=== PATIENT | male | born 1990 | race American Indian/Alaskan Native ===

== ENCOUNTER 2017-01-01 13:12 | Emergency (ER) | payer MEDICAID, OTHER ==
[2017-01-01 13:40] VITALS: TEMP 98
[2017-01-01 14:20] VITALS: RESP 16
--- NOTE | 2017-01-01 14:24 | ED PDOC ---
Arrival/HPI - General Chief Complaint: Back Pain Time Seen by Provider: 01/01/17 14:11 Historian: Patient - History of Present Illness Narrative History of Present Illness (Text): 01/01/17 14:02 A 26 year old male presents to the emergency department complaining of intermittent episodes of left hand numbness and decrease strength. Patient reports symptoms only lasted for a second but took place on 2 separate occasions so he wanted to come to the emergency department to get evaluated. He reports last week he pulled his back but did not come to the emergency department for evaluation of back pain. He denies and injuries, headaches or any other complaints at this time. Time/Duration: Other Symptom Onset: Other Symptom Course: Intermittent Quality: Other Activities at Onset: Rest Context: Home Past Medical History - Provider Review Nursing Documentation Reviewed: Yes - Infectious Disease Hx of Infectious Diseases: None - Cardiac Hx Hypertension: Yes - Psychiatric Hx Substance Use: No Family/Social History - Physician Review Nursing Documentation Reviewed: Yes Family/Social History: No Known Family HX Smoking Status: Never Smoked Hx Alcohol Use: Yes Frequency of alcohol use: Socially Hx Substance Use: No Allergies/Home Meds Allergies/Adverse Reactions: Allergies No Known Allergies Allergy (Verified 01/01/17 13:40) Home Medications: Home Meds Medication Instructions Recorded Confirmed No Known Home Med 01/01/17 01/01/17 Physical Exam - Physical Exam Narrative Physical Exam (Text): - Review of Systems Constitutional: Normal. absent: Fatigue, Weight Change, Fevers Eyes: Normal ENT: Normal Respiratory: Normal absent: SOB, Cough, Sputum Cardiovascular: Normal absent: Chest pain, Palpitations, Syncope Gastrointestinal: Normal absent: Abdominal pain, Diarrhea, Nausea, Vomiting Genitourinary: Normal. absent: Dysuria, Frequency, Hematuria Musculoskeletal: Normal. absent: Arthralgias, Back Pain, Neck Pain Skin: Normal Neurological: Brief moment of numbness and weakness to the left arm. Endocrine: Normal Hemo/Lymphatic: Normal Psychiatric: Normal - Physical exam Patient appears age appropriate, speaking full sentences without difficulty - Systems Exam Head: Present: Atraumatic, Normocephalic Pupils: Present: PERRL Extraocular Muscles: Present: EOMI Conjunctiva: Present: Normal Mouth: Present: Moist Mucous Membranes Neck: Present: Normal Range of Motion. No: MIDLINE TENDERNESS, Paraspinal Tenderness Respiratory/Chest: Present: Clear to Auscultation, Good Air Exchange. No: Respiratory Distress, Accessory Muscle Use, Tachypneic Cardiovascular: Present: Regular Rate and Rhythm, Normal S1, S2, Peripheral Pulses Present. No: Murmurs Abdomen: Present: Normal Bowel Sounds, No: Tenderness, Peritoneal Signs, Rebound, Guarding, Distention Back: Present: Normal Inspection. No: Midline Tenderness, Paraspinal Tenderness Upper Extremity: Present: Normal Inspection. No: Cyanosis, Edema Lower Extremity: Present: Normal Inspection. No: Edema Neurological: Present: GCS=15, Speech Normal, cranial nerves II through XII fully intact with no cerebellar abnormality, neuro-sensory fully intact. No focal neurological deficits. Skin: Present: Warm, Dry, Normal Color. No: Rashes Lymphatic: Present: OX3, NI, NC Psychiatric: Present: Alert, Oriented x 3, Normal Insight, Normal Concentration Vital Signs Reviewed: Yes Vital Signs Temp Pulse Resp BP Pulse Ox 01/01/17 14:18 76 16 134/82 99 01/01/17 13:33 98 F 79 18 140/74 99 Temperature: Afebrile Blood Pressure: Normal Pulse: Regular Respiratory Rate: Normal Appearance: Positive for: Well-Appearing, Non-Toxic, Comfortable Pain Distress: None Mental Status: Positive for: Alert and Oriented X 3 Medical Decision Making ED Course and Treatment: 01/01/17 14:02 Impression: A 26 year old male with intermittent numbness and weakness to the left upper extremity. Physical examination reveal no acute findings. Differential Diagnosis include but are not limited to: intracranial abnormalities Plan: -- Head CT -- Toradol -- Reassess and disposition Progress Notes: 01/01/17 15:[address]: Creator and Dictator: STEVE HUERTAS MD IMPRESSION: No acute intracranial abnormality. Chronic right frontal, maxillary and ethmoid sinusitis. Fluid level in the left maxillary sinus may represent acute sinusitis in the appropriate clinical setting. 01/01/17 15:47 Patient is currently in no distress and has no acute findings on CAT scan. Patient has no focal neurological deficits at this time and has no complaints. Patient states that he currently has no back pain. I discussed in great detail with patient and importance of follow-up with a neurologist for further workup of his intermittent hand numbness. Patient voiced understanding and states that he will follow-up early this week. Pt states he understands to return to the ER right away for new or worsening symptoms or for inability to f/u with PMD or specialist as instructed. Patient states that he fully agrees with and understands discharge instructions. States that he agrees with the plan and disposition. Verbalized and repeated discharge instructions and plan. I have given the patient opportunity to ask any additional questions. - RAD Interpretation Radiology Orders: 01/01/17 14:11 HEAD W/O CONTRAST [CT] Stat - Medication Orders Current Medication Orders: Discontinued Medications Ketorolac Tromethamine (Toradol) 30 mg IM STAT STA Stop: 01/01/17 14:12 Last Admin: 01/01/17 14:21 Dose: 30 MG IM Administration Charges Document 01/01/17 14:21 HI (Rec: 01/01/17 14:21 HI [facility] [id number]) Injection Site MAR Injection Site Right Deltoid Charges for Administration # of IM Administrations 1 - Scribe Statement The provider has reviewed the documentation as recorded by the Scribe Tristan Yoon Provider Scribe Attestation: All medical record entries made by the Scribe were at my direction and personally dictated by me. I have reviewed the chart and agree that the record accurately reflects my personal performance of the history, physical exam, medical decision making, and the department course for this patient. I have also personally directed, reviewed, and agree with the discharge instructions and disposition. Disposition/Present on Arrival - Present on Arrival Any Indicators Present on Arrival: No History of DVT/PE: No History of Uncontrolled Diabetes: No Urinary Catheter: No History of Decub. Ulcer: No History Surgical Site Infection Following: None - Disposition Have Diagnosis and Disposition been Completed?: Yes Diagnosis: Paresthesia Disposition: HOME/ ROUTINE Disposition Time: 15:49 Patient Plan: Discharge Condition: GOOD Discharge Instructions (ExitCare): Paresthesia (ED) Additional Instructions: PLEASE RETURN TO THE EMERGENCY DEPARTMENT FOR NEW OR WORSENING SYMPTOMS. RETURN RIGHT AWAY IF YOU CANNOT FOLLOW UP WITH YOUR PRIMARY CARE DOCTOR, CLINIC, OR SPECIALIST IN 1-2 DAYS. Referrals: Mandeep Mcdaniel MD [Staff Provider] - Follow up with primary Juan Ramon Mcdaniel MD [Staff Provider] - Follow up with primary
--- NOTE | 2017-01-01 15:06 | CT ---
PROCEDURE: CT HEAD WITHOUT CONTRAST. HISTORY: MATHIS x2 weeks COMPARISON: None available. TECHNIQUE: Axial computed tomography images were obtained through the head/brain without intravenous contrast. Radiation dose: Total exam DLP = 774.23 mGy-cm. FINDINGS: HEMORRHAGE: No intracranial hemorrhage. BRAIN: Rice-white matter differentiation is preserved. There is no mass, mass effect or abnormal extra-axial fluid collection. There is normal density in the larger dural venous sinuses. VENTRICLES: The ventricles are normal in size, shape and configuration. CALVARIUM: The skull base and calvarium are normal. PARANASAL SINUSES: There is a retention cyst/ polyp in the right frontal sinus and mild polypoid mucosal thickening in the maxillary sinuses. There is moderate anterior ethmoid chronic sinusitis. There is a fluid level in the left maxillary sinus. MASTOID AIR CELLS: Predominantly clear. OTHER FINDINGS: None. IMPRESSION: No acute intracranial abnormality. Chronic right frontal, maxillary and ethmoid sinusitis. Fluid level in the left maxillary sinus may represent acute sinusitis in the appropriate clinical setting.
[2017-01-01 16:34] VITALS: BP 134/71; PULSE 66; O2SAT 100
--- NOTE | 2017-01-02 15:45 | CARD ---
APPROVED REPORT EKG Measurement Heart [id number] <Conclusion> Normal sinus rhythm with sinus arrhythmia Normal ECG
== END 2017-01-01 16:00 | disposition home or self-care (01) ==
LOC: ED 13:12
DX: R20.9 Unspecified disturbances of skin sensation (principal); I10 Essential (primary) hypertension
CPT/HCPCS: 70450; 93005; 96372; 99283; J1885

== ENCOUNTER 2017-02-08 16:01 | Emergency (ER) | payer MEDICAID ==
[2017-02-08 16:20] VITALS: RESP 16; TEMP 98.9
--- NOTE | 2017-02-08 16:43 | ED PDOC ---
Arrival/HPI - General Chief Complaint: Lower Extremity Problem/Injury Time Seen by Provider: 02/08/17 16:38 Historian: Patient - History of Present Illness Narrative History of Present Illness (Text): 02/08/17 16:40 27 y/o male, no pmh, nkda, c/o rt. foot pain x 2 days with no fall or trauma. Aching pain, aggravated by movement, no numbness or tingling, no headache or night sweat, no calf pain, no palpitation, no rash, no other medical or psychological complaints. Past Medical History - Provider Review Nursing Documentation Reviewed: Yes - Infectious Disease Hx of Infectious Diseases: None - Cardiac Hx Cardiac Disorders: No Hx Hypertension: No - Pulmonary Hx Respiratory Disorders: No - Neurological Hx Neurological Disorder: No - HEENT Hx HEENT Disorder: No - Renal Hx Renal Disorder: No - Endocrine/Metabolic Hx Endocrine Disorders: No - Hematological/Oncological Hx Blood Disorders: No - Integumentary Hx Dermatological Disorder: No - Musculoskeletal/Rheumatological Hx Musculoskeletal Disorders: No - Gastrointestinal Hx Gastrointestinal Disorders: No - Genitourinary/Gynecological Hx Genitourinary Disorders: No - Psychiatric Hx Psychophysiologic Disorder: No Hx Substance Use: No Family/Social History - Physician Review Nursing Documentation Reviewed: Yes Family/Social History: Unknown Family HX Smoking Status: Never Smoked Hx Alcohol Use: Yes Hx Substance Use: No Allergies/Home Meds Allergies/Adverse Reactions: Allergies No Known Allergies Allergy (Verified 02/08/17 16:15) Review of Systems - Review of Systems Constitutional: absent: Fatigue, Fevers Eyes: absent: Vision Changes ENT: absent: Hearing Changes Respiratory: absent: Cough, Sputum Cardiovascular: absent: Chest Pain Gastrointestinal: absent: Abdominal Pain, Nausea, Vomiting Musculoskeletal: Arthralgias, Myalgias. absent: Back Pain, Neck Pain, Joint Swelling Skin: absent: Rash, Pruritis Neurological: absent: Headache, Dizziness, Focal Weakness, Gait Changes Physical Exam Vital Signs Reviewed: Yes Vital Signs Temp Pulse Resp BP Pulse Ox 02/08/17 17:40 90 16 140/82 98 02/08/17 16:15 98.9 F 88 16 135/86 97 Temperature: Afebrile Blood Pressure: Normal Pulse: Regular Respiratory Rate: Normal Appearance: Positive for: Well-Appearing, Non-Toxic, Comfortable Pain Distress: Moderate Mental Status: Positive for: Alert and Oriented X 3 - Systems Exam Head: Present: Atraumatic, Normocephalic Pupils: Present: PERRL Extroacular Muscles: Present: EOMI Conjunctiva: Present: Normal Mouth: Present: Moist Mucous Membranes Pharnyx: No: ERYTHEMA, EXUDATE, TONSILS ENLARGED, Peritonsilar Swelling, Uvular Deviation, Soft Palate/Uvular Edema Nose (External): Present: Atraumatic. No: Abrasion, Contusion, Laceration Nose (Internal): Present: Normal Inspection, No Active Bleeding. No: Rhinorrhea , Septal Hematoma, Epistaxis Neck: Present: Normal Range of Motion Respiratory/Chest: Present: Clear to Auscultation, Good Air Exchange. No: Respiratory Distress, Accessory Muscle Use, Wheezes, Retracting, Rhonchi Cardiovascular: Present: Regular Rate and Rhythm, Normal S1, S2. No: Murmurs Abdomen: Present: Normal Bowel Sounds. No: Tenderness, Distention, Peritoneal Signs Back: Present: Normal Inspection Upper Extremity: Present: Normal Inspection. No: Cyanosis, Edema Lower Extremity: Present: Normal Inspection, Other (Rt. foot: +ttp on the dorsum aspect of the foot of the extensor tendon region, no podegra, FROM without limitation, sensation intact, motor 5/5, +DPPT pulses, capillary refill < 2 seconds, neurovascular intact. ). No: Edema Neurological: Present: GCS=15, CN II-XII Intact, Speech Normal Skin: Present: Warm, Dry, Normal Color. No: Rashes Psychiatric: Present: Alert, Oriented x 3, Normal Insight, Normal Concentration Medical Decision Making ED Course and Treatment: 02/08/17 16:43 -indomethacin -xray -observe and reassess 02/08/17 17:19 -xray show no fracture or dislocation. -Erwin wrap applied with neurovascular intact, crutches given. -Discharge home with indomethacin, erwin wrap, crutches, avoid wearing close toe shoes, non-weight bearing for 5-7 days, avoid strenuous exercise or activity, follow up with your own pmd and unloader within 2 days, return to the ER for any new or worsening signs or symptoms. - RAD Interpretation Radiology Orders: 02/08/17 16:38 FOOT RIGHT 3 VIEWS ROUTINE [RAD] Stat normal right foot radiographs Casting Carrier: Radiologist - Medication Orders Current Medication Orders: Discontinued Medications Indomethacin (Indocin) 50 mg PO STAT STA Stop: 02/08/17 16:39 Last Admin: 02/08/17 17:09 Dose: 50 mg - PA / CONE WORKER / Resident Statement / has reviewed & agrees with the documentation as recorded. Disposition/Present on Arrival - Present on Arrival Any Indicators Present on Arrival: No History of DVT/PE: No History of Uncontrolled Diabetes: No Urinary Catheter: No History of Decub. Ulcer: No History Surgical Site Infection Following: None - Disposition Have Diagnosis and Disposition been Completed?: Yes Diagnosis: Tendonitis Disposition: HOME/ ROUTINE Disposition Time: 17:21 Patient Plan: Discharge Condition: GOOD Additional Instructions: Discharge home with indomethacin, erwin wrap, crutches, avoid wearing close toe shoes, non-weight bearing for 5-7 days, avoid strenuous exercise or activity, follow up with your own pmd and unloader within 2 days, return to the ER for any new or worsening signs or symptoms. Prescriptions: Indomethacin [Indocin] 50 mg PO TID PRN #30 cap PRN Reason: Other Referrals: Hamida Freed MD [Primary Care Provider] - Follow up with primary Tommy Roberto DPM [Staff Provider] - Follow up with primary Forms: WORK NOTE
[2017-02-08 17:40] VITALS: BP 140/82; PULSE 90; O2SAT 98
--- NOTE | 2017-02-09 08:29 | RAD ---
PROCEDURE: Right Foot Radiographs. HISTORY: rt. dorsum foot pain x 2 days COMPARISON: None. FINDINGS: BONES: Normal. No fracture. JOINTS: Normal. SOFT TISSUES: Normal. OTHER FINDINGS: None. IMPRESSION: Normal right foot radiographs.
== END 2017-02-08 17:40 | disposition home or self-care (01) ==
LOC: ED 16:01
DX: M77.51 Other enthesopathy of right foot and ankle (principal)

== ENCOUNTER 2017-03-19 12:12 | Emergency (ER) | payer MEDICAID ==
[2017-03-19 12:41] VITALS: BP 125/81; PULSE 84; RESP 16; TEMP 98.7; O2SAT 97
--- NOTE | 2017-03-19 12:45 | ED PDOC ---
Arrival/HPI - General Chief Complaint: Abnormal Skin Integrity Time Seen by Provider: 03/19/17 12:41 Historian: Patient - History of Present Illness Narrative History of Present Illness (Text): 03/19/17 12:41 27 y/o male, no pmh, nkda, last tetanus doesn't remember, c/o lt. hand 5th digit finger laceration x 2 hours. Pt. was preparing the food, accidentally cut on the lt. hand 5th digit region, no numbness or tingling, able to bend and extend the injured finger without difficutly, no loss of sensation, no other medical or psychological complaints. Past Medical History - Provider Review Nursing Documentation Reviewed: Yes - Infectious Disease Hx of Infectious Diseases: None - Cardiac Hx Cardiac Disorders: No Hx Hypertension: No - Pulmonary Hx Respiratory Disorders: No - Neurological Hx Neurological Disorder: No - HEENT Hx HEENT Disorder: No - Renal Hx Renal Disorder: No - Endocrine/Metabolic Hx Endocrine Disorders: No - Hematological/Oncological Hx Blood Disorders: No - Integumentary Hx Dermatological Disorder: No - Musculoskeletal/Rheumatological Hx Musculoskeletal Disorders: No - Gastrointestinal Hx Gastrointestinal Disorders: No - Genitourinary/Gynecological Hx Genitourinary Disorders: No - Psychiatric Hx Psychophysiologic Disorder: No Hx Substance Use: No Family/Social History - Physician Review Nursing Documentation Reviewed: Yes Family/Social History: Unknown Family HX Smoking Status: Never Smoked Hx Alcohol Use: Yes Hx Substance Use: No Allergies/Home Meds Allergies/Adverse Reactions: Allergies No Known Allergies Allergy (Verified 03/19/17 12:38) Review of Systems - Review of Systems Constitutional: absent: Fatigue, Fevers Eyes: absent: Vision Changes ENT: absent: Hearing Changes Respiratory: absent: SOB, Cough Cardiovascular: absent: Chest Pain Gastrointestinal: absent: Abdominal Pain, Nausea, Vomiting Skin: Laceration. absent: Rash, Pruritis, Skin Lesions, Abscess, Ulcer, Cellulitis Neurological: absent: Headache, Dizziness, Focal Weakness, Gait Changes Psychiatric: absent: Anxiety, Depression, Suicidal Ideation Physical Exam Vital Signs Reviewed: Yes Vital Signs Temp Pulse Resp BP Pulse Ox 03/19/17 12:38 98.7 F 84 16 125/81 97 Temperature: Afebrile Blood Pressure: Normal Pulse: Regular Respiratory Rate: Normal Appearance: Positive for: Well-Appearing, Non-Toxic, Comfortable Pain Distress: Mild Mental Status: Positive for: Alert and Oriented X 3 - Systems Exam Head: Present: Atraumatic, Normocephalic Pupils: Present: PERRL Extroacular Muscles: Present: EOMI Conjunctiva: Present: Normal Mouth: Present: Moist Mucous Membranes Neck: Present: Normal Range of Motion Respiratory/Chest: Present: Clear to Auscultation, Good Air Exchange. No: Respiratory Distress, Accessory Muscle Use Cardiovascular: Present: Regular Rate and Rhythm, Normal S1, S2. No: Murmurs Abdomen: Present: Normal Bowel Sounds. No: Tenderness, Distention, Peritoneal Signs Back: Present: Normal Inspection Upper Extremity: Present: Normal Inspection, Other (Lt. hand 5th digit: ventral distal phalanx region visible approx. 1cm superficial laceration with mild oozing, FROM without limitation, sensation intact, motor 5/5, +radial uplse, capillary refill< 2 seconds, neurovascular intact. ). No: Cyanosis, Edema Lower Extremity: Present: Normal Inspection. No: Edema Neurological: Present: GCS=15, CN II-XII Intact, Speech Normal Skin: Present: Warm, Dry, Normal Color. No: Rashes Psychiatric: Present: Alert, Oriented x 3, Normal Insight, Normal Concentration Medical Decision Making ED Course and Treatment: 03/19/17 12:43 -tetanus -sensation intact, motor 5/5, wound irrigate with 1000cc of normal saline, clean with betadine, 1% lidocaine with 3cc for digital block, 5-0 made 3 stiches with good approximation, hemostasis obtained, bacitracin and gauze dressing, sensation intact, motor 5/5, -Discharge home with keflex, motrin, bacitracin oinment, keep the dressing dry and clean for 24 hours then clean with soap and water twice daily, follow up with your own pmd and hand specialist within 2 days, return to the ER for any new or worsening signs or symptoms. - Medication Orders Current Medication Orders: Discontinued Medications Tetanus/Reduced Diphtheria/Acell Pertussis (Boostrix Vaccine Inj) 0.5 ml IM .ONCE ONE Stop: 03/19/17 13:17 - PA / COLOR STRIPPER / Resident Statement / has reviewed & agrees with the documentation as recorded. Disposition/Present on Arrival - Present on Arrival Any Indicators Present on Arrival: No History of DVT/PE: No History of Uncontrolled Diabetes: No Urinary Catheter: No History of Decub. Ulcer: No History Surgical Site Infection Following: None - Disposition Have Diagnosis and Disposition been Completed?: Yes Diagnosis: Finger laceration Disposition: HOME/ ROUTINE Disposition Time: 12:45 Patient Plan: Discharge Patient Problems: Current Active Problems Problem Status Onset Finger laceration Acute Condition: GOOD Additional Instructions: Discharge home with keflex, motrin, bacitracin oinment, keep the dressing dry and clean for 24 hours then clean with soap and water twice daily, follow up with your own pmd and hand specialist within 2 days, return to the ER for any new or worsening signs or symptoms. Prescriptions: Bacitracin Ointment [Bacitracin] 1 appful TOP BID #15 g Cephalexin [Keflex] 500 mg PO TID #24 capsule Ibuprofen [Motrin Tab] 600 mg PO TID PRN #21 tab PRN Reason: Other Referrals: Eric Wong MD [Staff Provider] - Follow up with primary Adam Drake MD [Staff Provider] - Follow up with primary [facility] [Outside] - Follow up with primary Forms: WORK NOTE
[2017-03-19] MEDS ORDERED: TDAP Vaccine 0.5 mL Syr IM ONE (13:16)
== END 2017-03-19 13:39 | disposition home or self-care (01) ==
LOC: ED 12:12
DX: S61.217A Laceration without foreign body of left little finger without damage to nail, initial encounter (principal); W45.8XXA Other foreign body or object entering through skin, initial encounter; Y93.G1 Activity, food preparation and clean up; Z23 Encounter for immunization

== ENCOUNTER 2017-09-28 14:14 | Emergency (ER) | payer MEDICAID ==
[2017-09-28 14:25] VITALS: TEMP 98.3; O2SAT 100
--- NOTE | 2017-09-28 14:31 | ED PDOC ---
Arrival/HPI - General Chief Complaint: Back Pain Time Seen by Provider: 09/28/17 14:27 Historian: Patient - History of Present Illness Narrative History of Present Illness (Text): 09/28/17 14:15 Urban Jain is a 27 year old male, whose past medical history includes tendonitis and hypertension, who presents to the emergency department complaining of intermittent chest pressure with some difficulty breathing since waking up this morning. Patient also notes that he experiences lower back pain. Patient denies any fever, chills, shortness of breath, nausea, vomiting, diarrhea, urinary symptoms, neck pain, headache, dizziness, or any other complaints. Time/Duration: 4-6 hours Symptom Onset: Gradual Symptom Course: Unchanged Activities at Onset: Light Context: Home Past Medical History - Provider Review Nursing Documentation Reviewed: Yes - Infectious Disease Hx of Infectious Diseases: None - Cardiac Hx Cardiac Disorders: No Hx Hypertension: Yes - Pulmonary Hx Respiratory Disorders: No - Neurological Hx Neurological Disorder: No - HEENT Hx HEENT Disorder: No - Renal Hx Renal Disorder: No - Endocrine/Metabolic Hx Endocrine Disorders: No - Hematological/Oncological Hx Blood Disorders: No - Integumentary Hx Dermatological Disorder: No - Musculoskeletal/Rheumatological Hx Musculoskeletal Disorders: No - Gastrointestinal Hx Gastrointestinal Disorders: No - Genitourinary/Gynecological Hx Genitourinary Disorders: No - Psychiatric Hx Psychophysiologic Disorder: No Hx Substance Use: No Family/Social History - Physician Review Nursing Documentation Reviewed: Yes Family/Social History: No Known Family HX Smoking Status: Never Smoked Hx Alcohol Use: Yes Frequency of alcohol use: Socially Hx Substance Use: No Allergies/Home Meds Allergies/Adverse Reactions: Allergies No Known Allergies Allergy (Verified 09/28/17 14:21) Review of Systems - Physician Review All systems were reviewed & negative as marked: Yes - Review of Systems Constitutional: absent: Fevers, Night Sweats Eyes: absent: Vision Changes ENT: absent: Hearing Changes Respiratory: absent: Cough Cardiovascular: Chest Pain (Chest pressure with some difficulty breathing) Gastrointestinal: absent: Abdominal Pain Genitourinary Male: absent: Dysuria, Frequency Musculoskeletal: Back Pain (lower back pain). absent: Arthralgias Skin: absent: Rash, Pruritis Neurological: absent: Headache, Dizziness Endocrine: absent: Diaphoresis Hemo/Lymphatic: absent: Adenopathy Psychiatric: absent: Anxiety, Depression Physical Exam Vital Signs Reviewed: Yes Vital Signs Temp Pulse Resp BP Pulse Ox 09/28/17 16:48 77 20 177/76 H 100 09/28/17 14:25 98.3 F 79 18 152/82 H 100 Temperature: Afebrile Blood Pressure: Hypertensive Pulse: Regular Respiratory Rate: Normal Appearance: Positive for: Other (morbidly obese) Pain Distress: None Mental Status: Positive for: Alert and Oriented X 3 - Systems Exam Head: Present: Atraumatic, Normocephalic Pupils: Present: PERRL Extroacular Muscles: Present: EOMI Conjunctiva: Present: Normal Mouth: Present: Moist Mucous Membranes Neck: Present: Normal Range of Motion Respiratory/Chest: Present: Tender to Palpation (chest wall, reproducible pain) Cardiovascular: Present: Regular Rate and Rhythm, Normal S1, S2. No: Murmurs Abdomen: Present: Normal Bowel Sounds. No: Tenderness, Distention, Peritoneal Signs Back: Present: Normal Inspection Upper Extremity: Present: Normal Inspection. No: Cyanosis, Edema Lower Extremity: Present: Normal Inspection. No: Edema Neurological: Present: GCS=15, CN II-XII Intact, Speech Normal Skin: Present: Warm, Dry, Normal Color. No: Rashes Psychiatric: Present: Anxious Medical Decision Making ED Course and Treatment: 09/28/17 14:32 Impression: 27 year old male complaining of intermittent chest pressure with some difficulty breathing since waking up this morning. Patient also notes that he experiences lower back pain. Differential Diagnosis included but are not limited to: Atypical Chest pain Plan: -- Reassess and disposition Prior Visits: Notes and results from previous visits were reviewed. Patient was last seen in the emergency department on 03/19/17 for 2 hour duration of lt. hand 5th digit finger laceration. Patient was discharged home. Progress Notes: 09/28/17 16:33 On re-evaluation, patient feels better and is in no acute distress. I have discussed the results and plan with the patient, who expresses understanding. Patient in agreement with plan to be discharged home. Patient is stable for discharge. Will discharge patient home with pain medications. Patient was instructed to follow up with physician or return if symptoms worsen or new concerning symptoms arise. - Lab Interpretations Lab Results: 09/28/17 15:40 09/28/17 15:40 Lab Results 09/28/17 15:40: D-Dimer, Quantitative 163 09/28/17 15:40: Sodium 138, Potassium 4.2, Chloride 102, Carbon Dioxide 28, Anion Gap 12, BUN 10, Creatinine 0.7 L, Est GFR ( Amer) > 60, Est GFR ( Non-Af Amer) > 60, Random Glucose 94, Calcium 9.3, Total Bilirubin 0.5, AST 19, ALT 26, Alkaline Phosphatase 108, Troponin I < 0.01, Total Protein 8.3, Albumin 4.0, Globulin 4.3, Albumin/Globulin Ratio 0.9 L 09/28/17 15:40: WBC 9.3, RBC 5.11, Hgb 14.0, Hct 44.7, MCV 87.5, MCH 27.4, MCHC 31.3, RDW 15.0 H, Plt Count 284, MPV 10.3, Gran % 63.9, Lymph % (Auto) 28.0, Zavala % (Auto) 5.3, Eos % (Auto) 2.5, Baso % (Auto) 0.3, Gran # 5.96, Lymph # 2.6 , Zavala # 0.5, Eos # 0.2, Baso # 0.03 - RAD Interpretation Radiology Orders: 09/28/17 14:38 CHEST PORTABLE [RAD] Stat - Scribe Statement The provider has reviewed the documentation as recorded by the Griselda Oliveira Provider Scribe Attestation: All medical record entries made by the Scribe were at my direction and personally dictated by me. I have reviewed the chart and agree that the record accurately reflects my personal performance of the history, physical exam, medical decision making, and the department course for this patient. I have also personally directed, reviewed, and agree with the discharge instructions and disposition. Disposition/Present on Arrival - Present on Arrival Any Indicators Present on Arrival: No History of DVT/PE: No History of Uncontrolled Diabetes: No Urinary Catheter: No History of Decub. Ulcer: No History Surgical Site Infection Following: None - Disposition Have Diagnosis and Disposition been Completed?: Yes Diagnosis: Chest wall pain, Low back pain Disposition: HOME/ ROUTINE Disposition Time: 17:40 Patient Plan: Discharge Condition: GOOD Discharge Instructions (ExitCare): Chest Pain (ED), Back Pain (ED) Print Language: TURKISH Prescriptions: Cyclobenzaprine [Cyclobenzaprine HCl] 10 mg PO TID #21 tab Naproxen [Naprosyn] 500 mg PO BID #20 tablet Referrals: Hamida Freed MD [Primary Care Provider] - Follow up with primary Forms: Prescreen (Macedonian)
[2017-09-28 15:51] LABS: BASO # 0.03 K/mm3 (0.0-2.0); BASO % 0.3 % (0.0-3.0); EOS # 0.2 (0.0-0.7); EOS % 2.5 % (1.5-5.0); GRAN # 5.96 (1.4-6.5); GRAN % 63.9 % (50.0-68.0); HEMATOCRIT 44.7 % (42.0-52.0); LYMPH # 2.6 (1.2-3.4); MEAN CELL VOLUME 87.5 fl (80.0-105.0); MEAN CORPUSCULAR HEMOGLOBIN 27.4 pg (25.0-35.0); MEAN CORPUSCULAR HGB CONC 31.3 g/dl (31.0-37.0); MEAN PLATELET VOLUME 10.3 fl (7.0-11.0); MONO # 0.5 (0.1-0.6); MONO % 5.3 % (1.0-6.0); WHITE BLOOD COUNT 9.3 10^3/ul (4.5-11.0)
[2017-09-28 16:03] LABS: ALB/GLOB RATIO 0.9 (1.1-1.8); ALKALINE PHOSPHATASE 108 U/L (38-126); ALT/SGPT 26 U/L (7-56); AST/SGOT 19 U/L (17-59); BILIRUBIN,TOTAL 0.5 mg/dL (0.2-1.3); BLOOD UREA NITROGEN 10 mg/dL (7-21); CALCIUM 9.3 mg/dL (8.4-10.5); CARBON DIOXIDE 28 mmol/L (21-33); CHLORIDE 102 mmol/L (98-107); GFR AFRICAN-AMERICAN > 60; GLUCOSE,RANDOM 94 mg/dL (70-110); POTASSIUM 4.2 mmol/L (3.6-5.0); SODIUM 138 mmol/L (132-148); TOTAL PROTEIN 8.3 g/dL (5.8-8.3)
[2017-09-28 16:13] LABS: TROPONIN I < 0.01 ng/mL
[2017-09-28 16:49] VITALS: BP 177/76; PULSE 77; RESP 20
--- NOTE | 2017-09-28 17:07 | RAD ---
HISTORY: Sepsis Patient COMPARISON: No prior. FINDINGS: LUNGS: No active pulmonary disease. PLEURA: No significant pleural effusion identified, no pneumothorax apparent. CARDIOVASCULAR: Normal. OSSEOUS STRUCTURES: No significant abnormalities. VISUALIZED UPPER ABDOMEN: Normal. OTHER FINDINGS: None. IMPRESSION: No active disease.
--- NOTE | 2017-09-29 09:49 | CARD ---
APPROVED REPORT EKG Measurement Heart [id number] <Conclusion> Normal sinus rhythm Normal ECG No change
== END 2017-09-28 16:50 | disposition home or self-care (01) ==
LOC: ED 14:14
DX: M54.5 Low back pain (principal); R07.89 Other chest pain; I10 Essential (primary) hypertension